=== PATIENT | male | born 1955 | race African-American/Black ===

== ENCOUNTER 2025-04-28 00:37 | Emergency (ER) | payer MEDICARE, MEDICAID ==
[~2025-04-28] VITALS: Ht 162.6 cm; Wt 73.0 kg
[2025-04-28 00:47] VITALS: O2SAT 99
[2025-04-28] MEDS ORDERED: TETANUS, DIPHTHERIA, PERTUSSIS VAC/PF 0.5ML (>10YR OLD) IM ONE (03:00)
[2025-04-28] MEDS ORDERED: ACETAMINOPHEN 500MG TABLET PO ONE (03:00)
[2025-04-28] MEDS ORDERED: LIDOCAINE HCL 1% 20ML VIAL INFIL ONE (03:00)
[2025-04-28] MEDS ORDERED: BO1 TP (04:48)
[2025-04-28] MEDS ORDERED: IBUP-2029 MT (04:48)
[2025-04-28] MEDS: LIDOCAINE HCL 1% 20ML VIAL INFIL SCH (05:00)
[2025-04-28] MEDS: ACETAMINOPHEN 500MG TABLET PO SCH (05:29)
[2025-04-28] MEDS: TETANUS, DIPHTHERIA, PERTUSSIS VAC/PF 0.5ML (>10YR OLD) IM ONE (05:29)
[2025-04-28 05:42] VITALS: BP 158/72; PULSE 69; RESP 16; TEMP 36.8; O2SAT 99
== END 2025-04-28 05:43 | disposition home or self-care (01) ==
LOC: ER 00:37
DX: S01.81XA Laceration without foreign body of other part of head, initial encounter (principal); I10 Essential (primary) hypertension; I67.82 Cerebral ischemia; F10.90 Alcohol use, unspecified, uncomplicated; Z79.899 Other long term (current) drug therapy; X58.XXXA Exposure to other specified factors, initial encounter; Y93.89 Activity, other specified; Y92.89 Other specified places as the place of occurrence of the external cause; Y99.8 Other external cause status
CPT/HCPCS: 12013; 90471; 90715; 99285

== ENCOUNTER 2025-05-04 09:14 | Emergency (ER) | payer MEDICARE, MEDICAID ==
[~2025-05-04] VITALS: Ht 165.1 cm; Wt 73.0 kg
[~2025-05-04 09:14] MED LIST: BO1 TP; IBUP-2029 MT
[2025-05-04 09:16] VITALS: O2SAT 99
[2025-05-04 09:19] VITALS: BP 177/102; PULSE 69; RESP 18; TEMP 37; O2SAT 100
== END 2025-05-04 10:07 | disposition home or self-care (01) ==
LOC: ER 09:14
DX: S01.112D Laceration without foreign body of left eyelid and periocular area, subsequent encounter (principal); I10 Essential (primary) hypertension; Z79.899 Other long term (current) drug therapy; X58.XXXD Exposure to other specified factors, subsequent encounter
CPT/HCPCS: 99281